=== PATIENT | male | born 1995 | race Caucasian/White ===

== ENCOUNTER 2018-01-30 19:10 | Emergency (ER) | payer OTHER ==
--- NOTE | 2018-01-30 19:12 | EDM.PDOC ---
ED HPI GENERAL MEDICAL PROBLEM - General Chief Complaint: ENT Problem Stated Complaint: THROAT, FEVER [id number] Time Seen by Provider: 01/30/18 19:25 Source of Information: Reports: Patient History Limitations: Reports: No Limitations - History of Present Illness INITIAL COMMENTS - FREE TEXT/NARRATIVE: c/o sore throat, productive cough green phlegm, body aches since yesterday. Similar to strep infection in october. Throat Pain Score (Numeric/FACES): 3 - Related Data Allergies Allergy/AdvReac Type Severity Reaction Status Date / Time No Known Allergies Allergy Verified 01/30/18 19:13 Home Meds: Home Meds . [No Known Home Meds] 01/30/18 [History] ED ROS ENT - Review of Systems Review Of Systems: ROS reveals no pertinent complaints other than HPI. ED EXAM, ENT - Physical Exam Exam: See Below Exam Limited By: No Limitations General Appearance: Alert, Mild Distress Eye Exam: Bilateral Eye: EOMI Ears: TM Dullness (bilaterally) Nose: Normal Inspection Mouth/Throat: Muffled Voice, Tonsillar Erythema, Tonsillar Exudates, Tonsillar Swelling, Uvular Edema. No: Uvular Deviation Head: Atraumatic, Normocephalic Neck: Lymphadenopathy (L), Lymphadenopathy (R) Respiratory/Chest: No Respiratory Distress, Lungs Clear, Normal Breath Sounds Cardiovascular: Normal Peripheral Pulses, Regular Rate, Rhythm GI/Abdominal: Normal Bowel Sounds Extremities: Normal Range of Motion Neurological: Alert, Oriented, Normal Cognition Psychiatric: Normal Affect, Normal Mood Skin: Warm, Dry, Intact, Other (cheeks flushed) Course - Vital Signs Last Recorded V/S: Last Vital Signs Temp 98.0 F 01/30/18 19:15 Pulse 94 01/30/18 19:15 Resp 14 01/30/18 19:15 BP 154/86 H 01/30/18 19:15 Pulse Ox 98 01/30/18 19:15 - Orders/Labs/Meds Orders: Active Orders 24 hr Category Date Time Status CULTURE STREP A CONFIRMATION [RM] Stat Lab 01/30/18 19:19 Results STREP SCRN A RAPID W CULT CONF [RM] Stat Lab 01/30/18 19:19 Results Meds: Medications Discontinued Medications Generic Name Dose Route Start Last Admin Trade Name Freq PRN Reason Stop Dose Admin Amoxicillin 500 mg 01/30/18 20:13 01/30/18 20:21 Amoxil PO 01/30/18 20:14 500 mg ONETIME ONE Administration Departure - Departure Time of Disposition: 20:11 Disposition: Home, Self-Care 01 Condition: Good Clinical Impression: Pharyngitis Qualifiers: Pharyngitis/tonsillitis etiology: unspecified etiology Qualified Code(s): J02.9 - Acute pharyngitis, unspecified - Discharge Information *PRESCRIPTION DRUG MONITORING PROGRAM REVIEWED*: Not Applicable Instructions: Sore Throat, [id number] Forms: ED Department Discharge Additional Instructions: alternate tylenol and ibuprofen every 4 hours as needed for discomfort/fever chloraseptic throat spray as needed for discomfort humidification amoxicillin 500mg one three times daily for one week increase fluid intake - My Orders Last 24 Hours: My Active Orders 01/30/18 19:19 CULTURE STREP A CONFIRMATION [RM] Stat STREP SCRN A RAPID W CULT CONF [] Stat - Assessment/Plan Last 24 Hours: My Active Orders 01/30/18 19:19 CULTURE STREP A CONFIRMATION [] Stat STREP SCRN A RAPID W CULT CONF [] Stat
[2018-01-30] MEDS ORDERED: Amoxicillin 500 MG Cap PO ONE (20:13)
== END 2018-01-30 20:24 | disposition home or self-care (01) ==
LOC: DL.ED 19:10
DX: J02.9 Acute pharyngitis, unspecified (principal)
CPT/HCPCS: 87081; 87430; 99283; A9270